=== PATIENT | female | born 1960 ===

== ENCOUNTER 2018-05-13 07:57 | Emergency (ER) | payer SELFPAY ==
[~2018-05-13] VITALS: Ht 167.6 cm; Wt 90.0 kg
[2018-05-13 08:16] VITALS: BP 152/86
[2018-05-13] MEDS ORDERED: MAGNESIUM/ALUMINUM HYDROXIDE/SIMETHICONE 30ML UDC PO STA (08:36)
[2018-05-13] MEDS ORDERED: VISCOUS LIDOCAINE 2% 15 ML UDC PO STA (08:36)
== END 2018-05-13 09:21 | disposition home or self-care (01) ==
LOC: ER 07:57
DX: K12.0 Recurrent oral aphthae (principal); Z90.49 Acquired absence of other specified parts of digestive tract
CPT/HCPCS: 99283